=== PATIENT | male | born 2000 | race Two or more races ===

== ENCOUNTER 2023-01-11 01:12 | Emergency (ER) | payer SELFPAY ==
[~2023-01-11] VITALS: Ht 170.2 cm; Wt 100.0 kg
[2023-01-11 01:29] VITALS: PULSE 82; RESP 31; O2SAT 96
[2023-01-11] MEDS ORDERED: SODIUM CHLORIDE 0.9% 1,000 ML IV ONE (01:30)
[2023-01-11 01:44] LABS: Basophils # (auto) 0.1 10 ^3/uL (0-0.2); Basophils % (auto) 0.8 % (0.0-2.0); Eosinophils # (auto) 0 10 ^3/uL (0-0.8); Eosinophils % (auto) 0.3 % (0.0-7.0); Hematocrit 43.3 % (41.0-53.0); Lymphocytes # (auto) 2.4 10 ^3/uL (0.4-5.4); Mean Corpuscular Hemoglobin 30.2 pg (28.0-32.0); Mean Corpuscular Hgb Conc. 34.7 g/dL (32.0-36.0); Mean Corpuscular Volume 87.1 fL (80.0-100.0); Monocytes # (auto) 0.6 10 ^3/uL (0-1.3); Monocytes % (auto) 7.3 % (0.0-12.0); Neutrophils # (auto) 5.2 10 ^3/uL (1.6-8.6); Neutrophils % (auto) 62.6 % (37.0-80.0); Nucleated Red Blood Cells % 0.1 %; Red Blood Cells 4.97 10^6/uL (4.5-5.90); Red Cell Distribution Width 14.3 % (11.8-14.3); White Blood Cell 8.4 10^3/uL (4.4-10.8)
[2023-01-11 02:13] LABS: BUN/Creatinine Ratio 12.9 (10.0-20.0); Potassium 3.6 mmol/L (3.5-5.1)
[2023-01-11 04:00] VITALS: TEMP 98.2
[2023-01-11 07:35] VITALS: BP 114/61; RESP 18; O2SAT 95
[2023-01-11 07:37] VITALS: PULSE 86
== END 2023-01-11 07:58 | disposition home or self-care (01) ==
LOC: ER 01:12 → EDBD 01:12 → ER 07:58
DX: F10.121 Alcohol abuse with intoxication delirium (principal); K29.20 Alcoholic gastritis without bleeding; E78.5 Hyperlipidemia, unspecified
CPT/HCPCS: 36415; 71045; 80048; 80320; 85025; 93005; 96360; 99285; J7030